=== PATIENT | female | born 1985 | race Caucasian/White ===

== ENCOUNTER 2017-08-21 16:16 | Inpatient (IN) ==
[2017-08-21] MEDS ORDERED: MEPERIDINE 50 MG/1 ML VIAL IV PRN (16:40)
[2017-08-21] MEDS ORDERED: DINOPROSTONE VAG GEL 10 MG SYRINGE VAG ONE (17:00)
[2017-08-21 17:03] LABS: Basophils % 0.3 % (0.0-0.8); Eosinophils % 0.4 % (0.00-10.9); Hematocrit 30.8 VOL% (35.7-47.0); Hemoglobin 10.4 GM/DL (12.0-16.0); Immature Granulocytes % 0.6 %; Immature Granulocytes Absolute 0.05 #; Lymphocytes # 1.9 10*3/uL (1.4-4.0); Lymphocytes % 23.7 % (21.3-54.2); Mean Corpuscular HGB Conc 33.8 GM/DL (32-36); Mean Corpuscular Hemoglobin 29 PG (27-34); Mean Corpuscular Volume 84.4 FL (87-102); Mean Platelet Volume 11.9 FL (9.6-12.0); Monocytes # 0.4 10*3/uL (0.11-0.8); Monocytes % 5.3 % (1.7-12.7); Neutrophils # 5.4 10*3/uL (1.4-7.4); Neutrophils % 69.7 % (38.7-73.9); Platelet Count 226 T/CUMM (130-400); Red Blood Count 3.65 MC/CUMM (3.8-5.5); Red Cell Distribution Width 12.5 % (9.3-17.3); White Blood Count 7.8 T/CUMM (4-12)
[2017-08-21 17:22] LABS: Alanine Aminotransferase 13 U/L (13-56); Albumin 2.6 G/DL (3.4-5.0); Alkaline Phosphatase 139 U/L (45-117); Aspartate Amino Transferase 14 U/L (0-37); Bilirubin,Total < 0.39 MG/DL (0.2-1.0); Blood Urea Nitrogen 10 MG/DL (7-18); Calcium 8.8 MG/DL (8.5-10.1); Glucose 93 MG/DL (74-106); Osmolality,Calculated 271.8 MOS/KG (273-304); Sodium 137 MMOL/L (136-145); Total Protein 6.9 G/DL (6.4-8.3); Uric Acid 3.1 MG/DL (2.6-6.0)
[2017-08-21] MEDS: LACTATED RINGERS 1,000 ML IV SCH ×2 (17:30→22:01)
--- NOTE | 2017-08-21 17:48 | OB/GYN History & Physical ---
History of Present Illness Chief complaint: In for elective induction of labor due to term . History of present illness: Ms. Patel is a 31 year old female who is a 5 para 2 AB 2 living 2. Her RUBINA is 08/22/2017 for an estimated gestational age of 39 weeks and 6 days. The patient presents for elective induction of labor due to term . The risk and benefits been thoroughly discussed with this patient and significant other, plan of care has been discussed with Dr. Gaffney and all parties are in agreement plan. The patient received her care at the [facility] and she received routine care and her course was uneventful. She has had 2 previous vaginal deliveries and her largest weighing 8 pounds and she reported no complications with that . labs she is O- she did receive RhoGam. Rubella is immune, RPR is nonreactive, hepatitis B negative, HIV negative, GBS culture is negative. Review of systems is negative with exception of above. Home Medications Medication Instructions Recorded Confirmed Type Multivitamin () [ 1 tablet PO DAILY 08/08/17 08/08/17 History Vitamin] Allergies Allergy/AdvReac Type Severity Reaction Status Date / Time ondansetron Allergy Vomiting Verified 11/14/16 09:00 [From Zofran (as hydrochloride)] 12 point system: reviewed and no additional remarkable complaints except as stated Medical,Surgical,& Family Hx - Medical History Medical History: noncontributory - Surgical History Surgical History: noncontributory - Family History Family History: Reports;: Family Cancer (FATHER, MOTHER), Family Heart Disease ( Father) - Social History Smoking Status: Never smoker Frequency of Alcohol Use: None Type of Drug Use: None Marital Status: Lives With:: Spouse [employer] 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[employer] - Constitutional Vitals: Vital Signs Temp Pulse Resp BP Pulse Ox 08/21/17 16:46 97.2 F L 103 H 20 120/76 100 General appearance: no acute distress - Antepartum / Post Antepartum Exam Cervix - Dilatation: 2 cm Effacement: 50% Station: -2 Rupture: intact Presentation: vtx Heart Rate: 150s Breast: bilateral: normal Abdomen obstetrics: Present: bowel sounds normal Vagina: Present: normal moisture Uterus exam: Present: enlarged Anus/Rectum: Present: normal perianal skin - Respiratory Respiratory exam: Present: clear to auscultation bilaterally - Cardiovascular Cardiovascular exam: Present: regular rate and rhythm - GI/Abdominal GI/Abdominal exam: Present: normal bowel sounds, soft - Extremities Exam Extremities exam: Present: normal inspection - Neurological Exam Neurological exam: Present: alert, oriented X3 - Psychiatric Psychiatric exam: Present: normal affect, normal mood - Skin Skin exam: Present: normal color, warm Assessment and Plan (1) 39 weeks gestation of Status: Acute Assessment and plan: Admit IV fluids Prostin gel per protocol IV Pitocin per protocol if indicated Artificial rupture membranes when appropriate Epidural anesthesia if desired IV pain meds as indicated Anticipate Current Visit: Yes Results - Labs CBC & BMP: 08/21/17 16:52 08/21/17 16:52
[2017-08-21] MEDS ORDERED: ePHEDrine 50 MG/ML AMP IV PRN (19:54)
[2017-08-21] MEDS ORDERED: PROMETHAZINE 25 MG/1 ML VIAL IM ONE (19:54)
[2017-08-21] MEDS ORDERED: FAMOTIDINE 20 MG/2 ML VIAL IV ONE (19:54)
[2017-08-21] MEDS ORDERED: hydrOXYzine HCL 25 MG/1 ML VIAL IM PRN (19:54)
[2017-08-21] MEDS ORDERED: LACTATED RINGERS 1,000 ML IV ONE (19:54)
[2017-08-21] MEDS ORDERED: CITRIC ACID/SODIUM CITRATE 30 ML UDCUP PO ONE (19:54)
[2017-08-21] MEDS ORDERED: fentaNYL 2 MCG/ROPIV 0.2% EPID 150 ML EPIDURAL SCH (19:54)
[2017-08-21] MEDS ORDERED: diphenhydrAMINE 50 MG/1 ML VIAL IV PRN ×2 (19:54)
[2017-08-21 22:40] LABS: Apearance,Urine CLEAR (Clear); Bacteria,Urine Occasional /HPF (Few); Bilirubin,Urine Negative (Negative); Blood, Urine Negative (Negative); Glucose,Urine (UA) Negative (Negative); Ketones,Urine 20 mg/dL (Negative); Mucus,Urine Occasional /LPF (Occasional); Nitrite,Urine Negative (Negative); Protein,Urine Negative; RBC,Urine <1 /HPF (0-4); Squamous Epithelial Cell,Urine Occasional /HPF (0-10); Urine Color Yellow (Yellow); Urine Specific Gravity 1.009 (1.001-1.035); Urine Urobilinogen < 2.0 EU/DL (0.2-1.0)
[2017-08-22] MEDS ORDERED: LIDOCAINE 1% 50 ML VIAL ONE (01:18)
[2017-08-22] MEDS ORDERED: miSOPROStol 200 MCG TABLET ONE (01:18)
[2017-08-22] MEDS ORDERED: METHYLERGONOVINE 0.2 MG/1 ML AMP ONE (01:19)
[2017-08-22] MEDS ORDERED: CARBOPROST TROMETHAMINE 250 MCG/ML AMP IM ONE (01:19)
[2017-08-22] MEDS ORDERED: OXYTOCIN/LR 30 UNIT/1,000 ML BAG IV ONE (01:24)
--- NOTE | 2017-08-22 01:49 | Event Note ---
HPI: Ms. Patel presented to labor department for elective induction of labor due to term . The risk and benefits were thoroughly discussed with the patient and significant other, plan of care was discussed with Dr. Gaffney and all parties were in agreement plan. Stage I: The patient was admitted she received IV fluids and Prostin gel per protocol. She progressed in labor with a CAT 1 tracing. She did have a few variable decelerations which some were of the CAT 2, the patient received oxygenation and position change and the variables were corrected. She then proceeded to have an uneventful course of labor. She did receive an epidural for pain control. Stage II: The patient was complete and complained of pressure. She was instructed to push. She pushed for approximately 5 minutes after which time the infant's head was delivered. The mouth and nose were suctioned on the perineum. Nuchal cord 1 was noted and reduced. The remainder the was delivered at 134, a viable male infant was noted. Apgars were 8 at 1 minute and 9 at 5 minutes. weight was 8 pounds and 0 ounces. A cord pH was obtained and sent to the lab. The was placed on the mom's abdomen for skin to skin bonding. Stage III: A spontaneous delivery of a Collins placenta with a three-vessel cord noted. The placenta was further examined appeared to be grossly intact. The vagina cervix was inspected with a first-degree perineal laceration noted which was repaired. Epidural anesthesia remain in effect on repair. Estimated blood loss was approximately 150 cc. At the time of dictation mother and baby are both in stable condition.
[2017-08-22] MEDS ORDERED: ACETAMINOPHEN/CODEINE 300-30 MG TABLET PO PRN (01:51)
[2017-08-22] MEDS ORDERED: OXYTOCIN/LR 20 UNIT/1,000 ML BAG IV ONE (02:00)
[2017-08-22] MEDS ORDERED: LANOLIN 50% CREAM 0.3 OZ TUBE TOP PRN (02:40)
[2017-08-22] MEDS ORDERED: WITCH HAZEL PADS 100/JAR TOP PRN (02:40)
[2017-08-22] MEDS ORDERED: BISACODYL 10 MG SUPP RECTAL PRN (02:40)
[2017-08-22] MEDS ORDERED: oxyCODONE/ACETAMINOPHEN 5-325 MG TABLET PO PRN ×2 (02:40)
[2017-08-22] MEDS ORDERED: RHO(D) IMMUNE GLOBULIN 300 MCG SYRINGE IM ONE ×2 (02:40→16:36)
[2017-08-22] MEDS ORDERED: BENZOCAINE 20%/MENTHOL 0.5% SPRAY 56 GM CAN TOP PRN (02:40)
[2017-08-22] MEDS ORDERED: HYDROCORTISONE 2.5% RECTAL CREAM 30 GM TUBE TOP PRN (02:40)
[2017-08-22] MEDS ORDERED: ACETAMINOPHEN 325 MG TABLET PO PRN (02:40)
[2017-08-22] MEDS ORDERED: DIPH/TET/ACEL PERT BOOSTER VACCINE 0.5 ML VIAL IM ONE (02:40)
[2017-08-22] MEDS ORDERED: ONDANSETRON 4 MG/2 ML VIAL IV PRN (02:40)
[2017-08-22] MEDS ORDERED: MEASLES/MUMPS/RUBELLA VACCINE 0.5 ML VIAL SUBCUT ONE (02:40)
[2017-08-22] MEDS: IBUPROFEN 800 MG TABLET PO PRN ×4 (02:49→21:59)
[2017-08-22] MEDS: DOCUSATE SODIUM 100 MG CAPSULE PO SCH ×2 (08:12→21:57)
--- NOTE | 2017-08-22 09:19 | OB/GYN Progress Note ---
Assessment and Plan (1) 39 weeks gestation of Status: Acute Assessment and plan: Admit IV fluids Prostin gel per protocol IV Pitocin per protocol if indicated Artificial rupture membranes when appropriate Epidural anesthesia if desired IV pain meds as indicated Anticipate Current Visit: Yes (2) Vaginal delivery Status: Acute Assessment and plan: Initiate routine orders. 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 Bonding well with . Exam TRIM OPERATOR - Constitutional Vitals: Vital Signs Temp Pulse Resp BP Pulse Ox 08/22/17 08:00 18 08/22/17 07:24 96.8 F L 66 18 105/65 98 08/22/17 06:45 58 L 18 104/56 98 08/22/17 05:45 58 L 18 104/56 98 08/22/17 04:45 70 18 116/70 08/22/17 04:15 98.1 F 64 18 107/48 08/22/17 03:45 98.1 F 84 18 140/85 99 08/21/17 16:46 97.2 F L 103 H 20 120/76 100 General appearance: no acute distress - Antepartum / Post Post Exam Breast: bilateral: normal Abdomen obstetrics: Present: bowel sounds normal Vagina: Present: normal moisture, discharge (Light lochia rubra) Uterus exam: Present: enlarged (Fundus firm midline) Anus/Rectum: Present: normal perianal skin - Head Head exam: Present: normal inspection - Respiratory Respiratory exam: Present: clear to auscultation bilaterally - Cardiovascular Cardiovascular exam: Present: regular rate and rhythm - GI/Abdominal GI/Abdominal exam: Present: normal bowel sounds, soft - Extremities Exam Extremities exam: Present: normal inspection - Neurological Exam Neurological exam: Present: alert, oriented X3 - Psychiatric Psychiatric exam: Present: normal affect, normal mood - Skin Skin exam: Present: normal color, warm Results - Labs CBC & BMP: 08/21/17 16:52 08/21/17 16:52
[2017-08-22 09:35] LABS: Basophils % 0.3 % (0.0-0.8); Eosinophils % 0.1 % (0.00-10.9); Hematocrit 29.9 VOL% (35.7-47.0); Hemoglobin 10.3 GM/DL (12.0-16.0); Immature Granulocytes % 0.4 %; Immature Granulocytes Absolute 0.05 #; Lymphocytes # 1.4 10*3/uL (1.4-4.0); Lymphocytes % 12.4 % (21.3-54.2); Mean Corpuscular HGB Conc 34.4 GM/DL (32-36); Mean Corpuscular Hemoglobin 29 PG (27-34); Mean Corpuscular Volume 84.2 FL (87-102); Monocytes # 0.7 10*3/uL (0.11-0.8); Neutrophils # 9.4 10*3/uL (1.4-7.4); Neutrophils % 80.8 % (38.7-73.9); Platelet Count 190 T/CUMM (130-400); Red Blood Count 3.55 MC/CUMM (3.8-5.5); Red Cell Distribution Width 12.5 % (9.3-17.3); White Blood Count 11.6 T/CUMM (4-12)
--- NOTE | 2017-08-22 13:06 | Anesthesia Post-Op ---
Anesthesia Post OP - Post Ansesthetic Evaluation Patient seen in post op: Yes Resp: within normal limits CV: within normal limits Mental: within normal limits Temp: within normal limits [id number]: within normal limits Nausea and Vomiting: within normal limits Pain: within normal limits
[2017-08-22] MEDS: FERROUS SULFATE 325 MG TABLET PO SCH ×2 (13:57→21:57)
[2017-08-23 07:28] VITALS: BP 110/72
[2017-08-23] MEDS: IBUPROFEN 800 MG TABLET PO PRN (08:19)
[2017-08-23] MEDS: DOCUSATE SODIUM 100 MG CAPSULE PO SCH (08:20)
[2017-08-23] MEDS: FERROUS SULFATE 325 MG TABLET PO SCH (08:20)
--- NOTE | 2017-08-23 09:49 | OB/GYN Progress Note ---
Assessment and Plan (1) 39 weeks gestation of Status: Acute Assessment and plan: Admit IV fluids Prostin gel per protocol IV Pitocin per protocol if indicated Artificial rupture membranes when appropriate Epidural anesthesia if desired IV pain meds as indicated Anticipate Current Visit: Yes (2) Vaginal delivery Status: Acute Assessment and plan: Initiate routine orders. 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 Bonding well with . 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 - Constitutional Vitals: Vital Signs Temp Pulse Resp BP Pulse Ox 08/23/17 07:28 97 F L 69 18 110/72 97 08/23/17 05:00 18 08/23/17 04:00 96.8 F L 75 18 102/71 08/23/17 03:00 18 08/23/17 01:00 18 08/23/17 00:00 96.8 F L 61 18 98/54 08/22/17 20:00 97.9 F 80 18 115/80 99 08/22/17 18:29 20 08/22/17 18:00 20 08/22/17 17:00 20 08/22/17 16:00 18 08/22/17 15:41 98.9 F 65 18 106/56 98 08/22/17 15:00 20 08/22/17 14:00 20 08/22/17 13:00 20 08/22/17 12:00 20 08/22/17 11:39 98.2 F 84 20 111/76 98 08/22/17 11:00 20 08/22/17 10:00 20 General appearance: no acute distress - Antepartum / Post Antepartum Exam Breast: bilateral: normal Abdomen obstetrics: Present: bowel sounds normal Vagina: Present: normal moisture, discharge (Light lochia rubra) Uterus exam: Present: enlarged (Fundus firm and midline) Anus/Rectum: Present: normal perianal skin - Respiratory Respiratory exam: Present: clear to auscultation bilaterally - Cardiovascular Cardiovascular exam: Present: regular rate and rhythm - GI/Abdominal GI/Abdominal exam: Present: normal bowel sounds, soft - Extremities Exam Extremities exam: Present: normal inspection - Back Exam Back exam: Present: normal inspection - Neurological Exam Neurological exam: Present: alert, oriented X3 - Psychiatric Psychiatric exam: Present: normal affect, normal mood - Skin Skin exam: Present: normal color, warm Results - Labs CBC & BMP: 08/22/17 09:19 08/21/17 16:52
--- NOTE | 2017-08-23 20:40 | Discharge Summary ---
Hospital Course - Hospital Course Hospital Course: Ms. Patel presented to the labor department for elective induction of labor due to term . She was admitted and her labor was augmented with Pitocin. She subsequently delivered a viable with no complications. She has followed a normal pp course and she has done well. Her bleeding is minimal with no odor. Her perineum in intact with no edema. Her vital signs and lab values are stable. She is bonding well with her . Contraception options were discussed and patient unsure of a method. She was discharged to home with RX for pain and a follow up appointment in our office. Diagnosis - Discharge Diagnosis (1) 39 weeks gestation of Status: Acute (2) Vaginal delivery Status: Acute Specialty Discharge - Follow Up or Referrals Follow up with: Luis Gaffney MD [Primary Care Provider] - 09/26/17 10:00 am Discharge Plan - Discharge Data Disposition: Disch To Home/Self Care Condition at Discharge: Stable Discharge Diet: advance to your usual diet, regular diet Activity: resume usual activities as tolerated Hygiene: no restrictions Weight Bearing at Discharge: weight bear as tolerated Driving: no restrictions Contact your physician if you experience:: fever over 101, Shortness of breath, pain uncontrolled by pain medications - Discharge Medications No Action Multivitamin () [ Vitamin] 1 tablet PO DAILY - Follow Up or Referral Follow Up: Luis Gaffney MD [Primary Care Provider] - 09/26/17 10:00 am - Forms/Instructions Instructions: Perineal Care (DC), Vaginal Delivery (DC), Bleeding (DC) Exam - Constitutional Vitals: Period Temp Pulse Resp BP Sys/Hernandez Pulse Ox Last 24 Hr 96.8 F-97 F 61-75 18-18 98-110/54-72 97 General appearance: no acute distress - Head Head exam: Present: normal inspection - Respiratory Respiratory exam: Present: clear to auscultation bilaterally - Cardiovascular Cardiovascular exam: Present: regular rate and rhythm - GI/Abdominal GI/Abdominal exam: Present: normal bowel sounds, soft - Extremities Exam Extremities exam: Present: normal inspection - Neurological Exam Neurological exam: Present: alert, oriented X3 - Psychiatric Psychiatric exam: Present: normal affect, normal mood - Skin Skin exam: Present: normal color, warm DS: Provider Date of admission: 08/21/17 16:40 Primary care physician: Luis Gaffney MD Attending physician on admission: Luis Gaffney MD Consults: 08/21/17 16:40 Consult to Anesthesiology [CONS] Routine Consulting Provider: Reason for Anesthesiology: Epidural Consult Comment: Epidural for pain managment 08/22/17 02:40 Consult to Inspection Machine Tender [CONS] Routine Consult Inspection Machine Tender: Breast Feeding Discharging clinician: Dulce Weaver CNM Expected date of discharge: 08/23/17
== END 2017-08-23 13:20 | disposition home or self-care (01) | DRG 775 ==
LOC: N.LDOUT 16:16 → N.LD 16:18 → N.OB 08-22 03:45
PROVIDERS: ADMIT Obstetrics & Gynecology; ATTEND Obstetrics & Gynecology